=== PATIENT | male | born 1945 | race Caucasian/White ===

== ENCOUNTER 2017-03-13 10:15 | Day surgery (SDC) | payer MEDICARE, OTHER ==
--- NOTE | ~2017-03-13 | EGD ---
EGD REPORT [facility] [address] [place]. [id number] NAME: ARMANDO STAUFFER : [birth year] STATUS : REG [facility] [place] PAT#: [id number] AGE: 71 ADM/REG DATE : 03/13/17 MR#: [id number] REPORT SERV DATE: 03/13/17 DICTATED BY: LUL HUERTA DATE: 03/13/17 REPORT STATUS : Draft TRANSCRIBED BY: [employer] DATE: 03/13/17 [facility] Patient Name: Armando Stauffer Date of : 1945 Attending MD: LUL HUERTA, Procedure Date No Time: 03/13/2017 Procedure: Colonoscopy Indications: Chronic diarrhea, Abnormal CT of the GI tract Referring MD: MAC SCHULTZ Medicines: Monitored Anesthesia Care Complications: No immediate complications. Estimated blood loss: None. Procedure: Pre-Anesthesia Assessment: - ASA Grade Assessment: II - A patient with mild systemic disease. After I obtained informed consent, the scope was passed under direct vision. Throughout the procedure, the patient's blood pressure, pulse, and oxygen saturations were monitored continuously. The [id number] was introduced through the anus and advanced to the terminal ileum. The colonoscopy was performed without difficulty. The patient tolerated the procedure well. The quality of the bowel preparation was good. Findings: The perianal and digital rectal examinations were normal. The terminal ileum appeared normal. Diffuse moderate inflammation characterized by congestion (edema), erythema, friability, granularity, mucus and aphthous ulcerations was found in the sigmoid colon, in the descending colon, in the transverse colon, in the ascending colon and in the cecum. Biopsies were taken with a cold forceps for histology. Verification of patient identification for the specimen was done. Estimated blood loss was minimal. Normal mucosa was found in the rectum. Biopsies were taken with a cold forceps for histology. Verification of patient identification for the specimen was done. Estimated blood loss was minimal. The exam was otherwise without abnormality on direct and retroflexion views. Impression: - The examined portion of the ileum was normal. - Diffuse moderate inflammation was found in the sigmoid colon, in the descending colon, in the transverse colon, in the ascending colon and in the cecum secondary to colitis. Biopsied. - Normal mucosa in the rectum. Biopsied. - The examination was otherwise normal on direct and EGD REPORT [address] [address] NAME: ARMANDO STAUFFER : [birth year] STATUS : REG [facility] [place] PAT#: [id number] AGE: 71 ADM/REG DATE : 03/13/17 MR#: [id number] REPORT SERV DATE: 03/13/17 DICTATED BY: LUL HUERTA DATE: 03/13/17 REPORT STATUS : Draft TRANSCRIBED BY: [facility] DATE: 03/13/17 retroflexion views. Recommendation: - Patient has a contact number available for emergencies. The signs and symptoms of potential delayed complications were discussed with the patient. Return to normal activities tomorrow. Written discharge instructions were provided to the patient. - Return to previous diet. - Continue present medications. - Await pathology results. - Repeat colonoscopy in 5 years for surveillance. Procedure Code(s): --- Professional --- 64528, Colonoscopy, flexible, proximal to splenic flexure; with biopsy, single or multiple Diagnosis Code(s): --- Professional --- K52.9, Noninfective gastroenteritis and colitis, unspecified R93.3, Abnormal findings on diagnostic imaging of other parts of digestive tract CPT copyright 2013 [employer]. All rights reserved. The codes documented in this report are preliminary and upon garment steamer review may be revised to meet current compliance requirements. LUL BRADLEY, 03/13/2017 11:25 AM Number of Addenda: 0 Note Initiated On: 03/13/2017 10:41 AM Scope Withdrawal Time 0 hours 11 minutes 4 seconds [id number] [place] [id number]
[~2017-03-13 10:15] MED LIST: ALEVE220 MG PO; ASAB PO; COREG3 PO; IMDUR30 PO; MONO10 PO; MONOPRIL40 MG PO; PRAVACHOL40 MG PO; ZINC PO
== END 2017-03-13 23:59 | disposition home health service (06) ==
LOC: DMU 10:15
PROVIDERS: Internal Medicine Gastroenterology
PROC: 0DBP8ZX Excision of Rectum, Via Natural or Artificial Opening Endoscopic, Diagnostic (ICD-10-PCS; 2017-03-13)
PROC: 0DBE8ZX Excision of Large Intestine, Via Natural or Artificial Opening Endoscopic, Diagnostic (ICD-10-PCS; principal; 2017-03-13 11:30)
DX: K52.9 Noninfective gastroenteritis and colitis, unspecified (principal); I10 Essential (primary) hypertension; E78.00 Pure hypercholesterolemia, unspecified; Z90.49 Acquired absence of other specified parts of digestive tract; Z98.890 Other specified postprocedural states; Z86.010 Personal history of colon polyps; Z87.891 Personal history of nicotine dependence
CPT/HCPCS: 87493; 87493-59; 88305